=== PATIENT | male | born 1955 | race Caucasian/White ===

== ENCOUNTER 2020-07-07 16:25 | Inpatient (IN) | payer MEDICARE ==
[~2020-07-07] VITALS: Ht 172.7 cm; Wt 77.1 kg
[2020-07-07 18:01] LABS: BASOPHILS % 0.3 % (0.0-1.0); EOSINOPHILS % 0.1 % (0.0-6.0); HEMATOCRIT 49.2 % (38.2-49.6); HEMOGLOBIN 16.7 g/dL (14.0-18.0); LYMPHOCYTES # (AUTO) 1.1 (1.0-3.2); MEAN CORPUSCULAR HEMOGLOBIN 29.1 pg (28-32); MEAN CORPUSCULAR HGB CONC 33.9 g/dL (31-35); MEAN CORPUSCULAR VOLUME 85.9 fL (81-99); MONOCYTES % 6.4 % (4.4-11.3); NEUTROPHILS % 85.9 % (38.7-80.0); PLATELET COUNT 214 x10e3/uL (140-360); RED BLOOD COUNT 5.73 x10e6/uL (4.3-5.7); RED CELL DISTRIBUTION WIDTH 12.3 % (11.7-14.4)
[2020-07-07 18:14] LABS: ALANINE AMINOTRANSFERASE 31 IU/L (0-55); ALBUMIN 4.4 g/dL (3.5-5.0); ALBUMIN/GLOBULIN RATIO 1.3 (0.8-2.0); ALKALINE PHOSPHATASE 56 IU/L (40-150); ANION GAP 14.2 mmol/L (8-16); BLOOD UREA NITROGEN 17 mg/dL (7-26); BUN/CREATININE RATIO 16 (6-25); CALCIUM 10.4 mg/dL (8.4-10.2); CARBON DIOXIDE 24 mmol/L (22-29); CHLORIDE 106 mmol/L (98-107); CREATINE KINASE 124 IU/L (30-200); CREATININE, SERUM 1.08 mg/dL (0.72-1.25); EST GLOMERULAR FILTRATION RATE > 60 ML/MIN (60-); GLUCOSE 102 mg/dL (74-118); POTASSIUM 4.2 mmol/L (3.5-5.1); SODIUM 140 mmol/L (136-145)
[2020-07-07 19:27] LABS: INR 0.81; PROTHROMBIN TIME 11.6 seconds (11.9-14.5)
[2020-07-07 19:28] LABS: PARTIAL THROMBOPLASTIN TIME 26.3 seconds (23.8-35.5)
[2020-07-07] MEDS ORDERED: ONDANSETRON HCL INJ 2MG/ML 2ML 2 MG/ML VIAL IV PRN (20:00)
[2020-07-07] MEDS ORDERED: MORPHINE SULFATE INJ 4 MG/ML INJ 1ML IV PRN (20:00)
[2020-07-07] MEDS ORDERED: IOPAMIDOL 370 MG/ML 200 ML INFUS..BTL INJ ONE (20:11)
[2020-07-07] MEDS ORDERED: SODIUM CHLORIDE 0.9% 50ML 50 ML ONE ×2 (20:11→20:14)
[2020-07-07] MEDS ORDERED: LIDOCAINE HCL 1% LOCAL INJ 20 ML VIAL ONE (21:24)
[2020-07-07] MEDS: SODIUM CHLORIDE 0.9% 1000ML 1,000 ML IV SCH (21:45)
[2020-07-07 22:00] VITALS: BP 161/91
[2020-07-07] MEDS ORDERED: LIOTHYRONINE SO5 MCG PO (23:09)
[2020-07-07] MEDS ORDERED: PRAVASTATIN SOD40 MG (23:09)
[2020-07-07] MEDS ORDERED: LEVOTHYROXINE50 MCG PO (23:09)
[2020-07-07] MEDS ORDERED: GUAIFENESIN400 MG (23:09)
[2020-07-07] MEDS ORDERED: MOBIC15 MG PO (23:09)
[2020-07-07] MEDS ORDERED: ALBUTEROL0.63 MG/3 (23:09)
[2020-07-07] MEDS ORDERED: COMBIVENT RESPIM4 GM IH (23:09)
[2020-07-07] MEDS ORDERED: FLOMAX0.4 MG PO (23:09)
[2020-07-07] MEDS ORDERED: NORCO 10-325 T1 EACH PO (23:22)
[2020-07-08] VITALS (7 sets, daily range): BP systolic 114–147; BP diastolic 78–99
[2020-07-08] MEDS: MELATONIN 5 MG TABLET PO SCH (00:07)
[2020-07-08 06:29] LABS: BASOPHILS # (AUTO) 0.1 (0.0-0.1); BASOPHILS % 0.5 % (0.0-1.0); EOSINOPHILS # (AUTO) 0.1 (0.0-0.4); HEMATOCRIT 45.5 % (38.2-49.6); HEMOGLOBIN 15.1 g/dL (14.0-18.0); LYMPHOCYTES % 21.1 % (18.0-39.1); MEAN CORPUSCULAR HEMOGLOBIN 29.2 pg (28-32); MEAN CORPUSCULAR HGB CONC 33.2 g/dL (31-35); MEAN CORPUSCULAR VOLUME 87.8 fL (81-99); MONOCYTES # (AUTO) 1.2 (0.2-0.8); MONOCYTES % 12.4 % (4.4-11.3); NEUTROPHILS # (AUTO) 6.2 (2.1-6.9); NEUTROPHILS % 64.7 % (38.7-80.0); PLATELET COUNT 196 x10e3/uL (140-360); RED BLOOD COUNT 5.18 x10e6/uL (4.3-5.7); RED CELL DISTRIBUTION WIDTH 12.3 % (11.7-14.4)
[2020-07-08] MEDS: HYDROCODONE/APAP 10MG-325MG TAB PO PRN ×2 (06:41→21:02)
[2020-07-08 06:58] LABS: CREATINE KINASE MB 3.6 ng/mL (0-5.0)
[2020-07-08] MEDS ORDERED: ACETAMINOPHEN 325 MG TAB PO PRN (07:15)
[2020-07-08] MEDS ORDERED: ZOLPIDEM TARTRATE 5 MG TAB PO PRN (07:15)
[2020-07-08] MEDS ORDERED: ONDANSETRON HCL INJ 2MG/ML 2ML 2 MG/ML VIAL IV PRN (07:15)
[2020-07-08] MEDS ORDERED: LIOTHYRONINE SODIUM 5 MCG TAB PO SCH (07:30)
[2020-07-08 07:35] LABS: ALANINE AMINOTRANSFERASE 25 IU/L (0-55); ALBUMIN 3.8 g/dL (3.5-5.0); ALBUMIN/GLOBULIN RATIO 1.4 (0.8-2.0); ALKALINE PHOSPHATASE 53 IU/L (40-150); BLOOD UREA NITROGEN 18 mg/dL (7-26); BUN/CREATININE RATIO 18 (6-25); CALCIUM 8.9 mg/dL (8.4-10.2); CARBON DIOXIDE 22 mmol/L (22-29); CHLORIDE 107 mmol/L (98-107); EST GLOMERULAR FILTRATION RATE > 60 ML/MIN (60-); GLUCOSE 83 mg/dL (74-118); SODIUM 140 mmol/L (136-145)
[2020-07-08] MEDS: SODIUM CHLORIDE 0.9% 1000ML 1,000 ML IV SCH ×2 (09:05→17:53)
[2020-07-08] MEDS: LEVOTHYROXINE SODIUM 25 MCG TABLET PO SCH (09:45)
[2020-07-08] MEDS: TAMSULOSIN HCL 0.4 MG CAP PO SCH ×2 (09:46→17:52)
[2020-07-08] MEDS ORDERED: LIOTHYRONINE SODIUM 5 MCG TAB PO ONE (10:00)
[2020-07-08 11:25] LABS: CREATINE KINASE MB 3.4 ng/mL (0-5.0)
[2020-07-08 14:36] LABS: CREATINE KINASE MB 3.4 ng/mL (0-5.0)
[2020-07-08] MEDS: PRAVASTATIN 20 MG TAB PO SCH (21:02)
[2020-07-09] VITALS: BP 129/86
[2020-07-09] MEDS: LEVOTHYROXINE SODIUM 25 MCG TABLET PO SCH (06:10)
[2020-07-09] MEDS: LIOTHYRONINE SODIUM 5 MCG TAB PO SCH (06:10)
[2020-07-09 08:54] VITALS: BP 115/76
[2020-07-09 09:09] LABS: BASOPHILS # (AUTO) 0.1 (0.0-0.1); BASOPHILS % 0.7 % (0.0-1.0); EOSINOPHILS # (AUTO) 0.3 (0.0-0.4); EOSINOPHILS % 3.3 % (0.0-6.0); HEMATOCRIT 48.3 % (38.2-49.6); HEMOGLOBIN 15.9 g/dL (14.0-18.0); LYMPHOCYTES # (AUTO) 1.7 (1.0-3.2); LYMPHOCYTES % 20.7 % (18.0-39.1); MEAN CORPUSCULAR HEMOGLOBIN 29.1 pg (28-32); MEAN CORPUSCULAR HGB CONC 32.9 g/dL (31-35); MEAN CORPUSCULAR VOLUME 88.3 fL (81-99); MONOCYTES # (AUTO) 0.8 (0.2-0.8); MONOCYTES % 9.7 % (4.4-11.3); NEUTROPHILS # (AUTO) 5.2 (2.1-6.9); NEUTROPHILS % 65.1 % (38.7-80.0); PLATELET COUNT 188 x10e3/uL (140-360); RED BLOOD COUNT 5.47 x10e6/uL (4.3-5.7); RED CELL DISTRIBUTION WIDTH 12.2 % (11.7-14.4)
[2020-07-09] MEDS: TAMSULOSIN HCL 0.4 MG CAP PO SCH ×2 (09:21→21:04)
[2020-07-09 09:32] LABS: ANION GAP 13.1 mmol/L (8-16); BLOOD UREA NITROGEN 14 mg/dL (7-26); BUN/CREATININE RATIO 14 (6-25); CALCIUM 9.6 mg/dL (8.4-10.2); CARBON DIOXIDE 26 mmol/L (22-29); CHLORIDE 106 mmol/L (98-107); CREATININE, SERUM 1.01 mg/dL (0.72-1.25); EST GLOMERULAR FILTRATION RATE > 60 ML/MIN (60-); GLUCOSE 105 mg/dL (74-118); POTASSIUM 4.1 mmol/L (3.5-5.1); SODIUM 141 mmol/L (136-145)
[2020-07-09 12:20] VITALS: BP 138/68
[2020-07-09] MEDS: SODIUM CHLORIDE 0.9% 1000ML 1,000 ML IV SCH ×2 (15:30→21:04)
[2020-07-09 16:36] VITALS: BP 129/74
[2020-07-09 20:00] VITALS: BP 131/84
[2020-07-09 21:04] VITALS: BP 131/84
[2020-07-09] MEDS: PRAVASTATIN 20 MG TAB PO SCH (21:04)
[2020-07-09] MEDS: MELATONIN 5 MG TABLET PO SCH (21:04)
[2020-07-10] VITALS (7 sets, daily range): BP systolic 111–139; BP diastolic 71–85
[2020-07-10] MEDS: LIOTHYRONINE SODIUM 5 MCG TAB PO SCH (05:24)
[2020-07-10] MEDS: TAMSULOSIN HCL 0.4 MG CAP PO SCH ×2 (05:24→21:22)
[2020-07-10] MEDS: LEVOTHYROXINE SODIUM 25 MCG TABLET PO SCH (05:24)
[2020-07-10] MEDS: MELATONIN 5 MG TABLET PO SCH (21:22)
[2020-07-10] MEDS: SODIUM CHLORIDE 0.9% 1000ML 1,000 ML IV SCH (21:22)
[2020-07-10] MEDS: PRAVASTATIN 20 MG TAB PO SCH (21:22)
[2020-07-11] VITALS (7 sets, daily range): BP systolic 128–162; BP diastolic 79–92
[2020-07-11] MEDS: LEVOTHYROXINE SODIUM 25 MCG TABLET PO SCH (05:45)
[2020-07-11] MEDS: TAMSULOSIN HCL 0.4 MG CAP PO SCH ×2 (05:45→21:01)
[2020-07-11] MEDS: LIOTHYRONINE SODIUM 5 MCG TAB PO SCH (05:46)
[2020-07-11] MEDS: IPRATROPIUM/ALBUTEROL SULFATE 4 GM INH INH SCH ×2 (08:00→14:00)
[2020-07-11] MEDS: SODIUM CHLORIDE 0.9% 1000ML 1,000 ML IV SCH (21:01)
[2020-07-11] MEDS: MELATONIN 5 MG TABLET PO SCH (21:01)
[2020-07-11] MEDS: PRAVASTATIN 20 MG TAB PO SCH (21:01)
[2020-07-11] MEDS: HYDROCODONE/APAP 10MG-325MG TAB PO PRN (21:03)
[2020-07-12] VITALS (7 sets, daily range): BP systolic 131–152; BP diastolic 81–89
[2020-07-12] MEDS: SODIUM CHLORIDE 0.9% 1000ML 1,000 ML IV SCH ×2 (04:37→23:02)
[2020-07-12] MEDS: LIOTHYRONINE SODIUM 5 MCG TAB PO SCH (05:37)
[2020-07-12] MEDS: LEVOTHYROXINE SODIUM 25 MCG TABLET PO SCH (05:37)
[2020-07-12] MEDS: TAMSULOSIN HCL 0.4 MG CAP PO SCH ×2 (05:37→21:19)
[2020-07-12 05:45] LABS: BASOPHILS # (AUTO) 0.1 (0.0-0.1); BASOPHILS % 0.6 % (0.0-1.0); EOSINOPHILS # (AUTO) 0.4 (0.0-0.4); EOSINOPHILS % 5.3 % (0.0-6.0); HEMATOCRIT 43.9 % (38.2-49.6); HEMOGLOBIN 14.8 g/dL (14.0-18.0); LYMPHOCYTES % 25.3 % (18.0-39.1); MEAN CORPUSCULAR HEMOGLOBIN 29.3 pg (28-32); MEAN CORPUSCULAR HGB CONC 33.7 g/dL (31-35); MEAN CORPUSCULAR VOLUME 86.9 fL (81-99); MONOCYTES # (AUTO) 0.9 (0.2-0.8); MONOCYTES % 11.1 % (4.4-11.3); NEUTROPHILS # (AUTO) 4.5 (2.1-6.9); NEUTROPHILS % 57.3 % (38.7-80.0); PLATELET COUNT 195 x10e3/uL (140-360); RED BLOOD COUNT 5.05 x10e6/uL (4.3-5.7); RED CELL DISTRIBUTION WIDTH 12.1 % (11.7-14.4)
[2020-07-12 06:05] LABS: ANION GAP 11.8 mmol/L (8-16); BLOOD UREA NITROGEN 11 mg/dL (7-26); BUN/CREATININE RATIO 12 (6-25); CALCIUM 8.7 mg/dL (8.4-10.2); CARBON DIOXIDE 24 mmol/L (22-29); CHLORIDE 110 mmol/L (98-107); EST GLOMERULAR FILTRATION RATE > 60 ML/MIN (60-); GLUCOSE 84 mg/dL (74-118); POTASSIUM 3.8 mmol/L (3.5-5.1); SODIUM 142 mmol/L (136-145)
[2020-07-12] MEDS: HYDROCODONE/APAP 10MG-325MG TAB PO PRN (19:21)
[2020-07-12] MEDS: PRAVASTATIN 20 MG TAB PO SCH (21:19)
[2020-07-12] MEDS: MELATONIN 5 MG TABLET PO SCH (21:19)
[2020-07-13] VITALS (8 sets, daily range): BP systolic 105–145; BP diastolic 60–87
[2020-07-13 05:30] LABS: BASOPHILS # (AUTO) 0.1 (0.0-0.1); BASOPHILS % 0.6 % (0.0-1.0); EOSINOPHILS # (AUTO) 0.4 (0.0-0.4); EOSINOPHILS % 4.7 % (0.0-6.0); HEMATOCRIT 44.9 % (38.2-49.6); HEMOGLOBIN 15.1 g/dL (14.0-18.0); LYMPHOCYTES # (AUTO) 1.7 (1.0-3.2); LYMPHOCYTES % 18.5 % (18.0-39.1); MEAN CORPUSCULAR HEMOGLOBIN 29.2 pg (28-32); MEAN CORPUSCULAR HGB CONC 33.6 g/dL (31-35); MEAN CORPUSCULAR VOLUME 86.7 fL (81-99); MONOCYTES # (AUTO) 0.9 (0.2-0.8); MONOCYTES % 9.8 % (4.4-11.3); NEUTROPHILS # (AUTO) 6.2 (2.1-6.9); NEUTROPHILS % 66.1 % (38.7-80.0); PLATELET COUNT 197 x10e3/uL (140-360); RED BLOOD COUNT 5.18 x10e6/uL (4.3-5.7)
[2020-07-13 05:44] LABS: ANION GAP 12.8 mmol/L (8-16); BLOOD UREA NITROGEN 11 mg/dL (7-26); BUN/CREATININE RATIO 12 (6-25); CALCIUM 9.3 mg/dL (8.4-10.2); CARBON DIOXIDE 25 mmol/L (22-29); CHLORIDE 108 mmol/L (98-107); CREATININE, SERUM 0.92 mg/dL (0.72-1.25); EST GLOMERULAR FILTRATION RATE > 60 ML/MIN (60-); GLUCOSE 83 mg/dL (74-118); POTASSIUM 3.8 mmol/L (3.5-5.1); SODIUM 142 mmol/L (136-145)
[2020-07-13] MEDS: LIOTHYRONINE SODIUM 5 MCG TAB PO SCH (06:38)
[2020-07-13] MEDS: LEVOTHYROXINE SODIUM 25 MCG TABLET PO SCH (06:38)
[2020-07-13] MEDS: TAMSULOSIN HCL 0.4 MG CAP PO SCH ×2 (06:38→20:15)
[2020-07-13] MEDS: SODIUM CHLORIDE 0.9% 1000ML 1,000 ML IV SCH (16:20)
[2020-07-13] MEDS: HYDROCODONE/APAP 10MG-325MG TAB PO PRN (19:45)
[2020-07-13] MEDS: PRAVASTATIN 20 MG TAB PO SCH (20:15)
[2020-07-13] MEDS: MELATONIN 5 MG TABLET PO SCH (20:15)
[2020-07-14] VITALS (8 sets, daily range): BP systolic 129–142; BP diastolic 81–95
[2020-07-14] MEDS: LIOTHYRONINE SODIUM 5 MCG TAB PO SCH (06:17)
[2020-07-14] MEDS: LEVOTHYROXINE SODIUM 25 MCG TABLET PO SCH (06:17)
[2020-07-14] MEDS: TAMSULOSIN HCL 0.4 MG CAP PO SCH ×2 (06:17→20:59)
[2020-07-14] MEDS: SODIUM CHLORIDE 0.9% 1000ML 1,000 ML IV SCH (08:15)
[2020-07-14] MEDS ORDERED: ONDANSETRON HCL 4 MG ORAL DISINTEGRATING TAB PO PRN (09:15)
[2020-07-14] MEDS: HYDROCODONE/APAP 10MG-325MG TAB PO PRN (19:28)
[2020-07-14] MEDS: PRAVASTATIN 20 MG TAB PO SCH (20:59)
[2020-07-14] MEDS: MELATONIN 5 MG TABLET PO SCH (20:59)
[2020-07-15] VITALS (9 sets, daily range): BP systolic 113–153; BP diastolic 70–89
[2020-07-15] MEDS: SODIUM CHLORIDE 0.9% 1000ML 1,000 ML IV SCH ×2 (03:36→18:39)
[2020-07-15] MEDS: LIOTHYRONINE SODIUM 5 MCG TAB PO SCH (05:41)
[2020-07-15] MEDS: TAMSULOSIN HCL 0.4 MG CAP PO SCH ×2 (05:41→21:26)
[2020-07-15] MEDS: LEVOTHYROXINE SODIUM 25 MCG TABLET PO SCH (05:41)
[2020-07-15] MEDS: HYDROCODONE/APAP 10MG-325MG TAB PO PRN (18:25)
[2020-07-15] MEDS: PRAVASTATIN 20 MG TAB PO SCH (21:26)
[2020-07-15] MEDS: MELATONIN 5 MG TABLET PO SCH (21:26)
[2020-07-16 04:54] VITALS: BP 138/84
[2020-07-16] MEDS: TAMSULOSIN HCL 0.4 MG CAP PO SCH ×2 (06:40→20:52)
[2020-07-16] MEDS: LIOTHYRONINE SODIUM 5 MCG TAB PO SCH (06:40)
[2020-07-16] MEDS: LEVOTHYROXINE SODIUM 25 MCG TABLET PO SCH (06:40)
[2020-07-16 08:13] VITALS: BP 139/84
[2020-07-16 08:29] LABS: BASOPHILS % 0.5 % (0.0-1.0); EOSINOPHILS # (AUTO) 0.3 (0.0-0.4); EOSINOPHILS % 4.2 % (0.0-6.0); HEMATOCRIT 44.4 % (38.2-49.6); HEMOGLOBIN 15.1 g/dL (14.0-18.0); LYMPHOCYTES # (AUTO) 0.8 (1.0-3.2); LYMPHOCYTES % 9.3 % (18.0-39.1); MEAN CORPUSCULAR HEMOGLOBIN 29.2 pg (28-32); MEAN CORPUSCULAR VOLUME 85.7 fL (81-99); MONOCYTES # (AUTO) 0.9 (0.2-0.8); MONOCYTES % 10.8 % (4.4-11.3); NEUTROPHILS # (AUTO) 6.1 (2.1-6.9); PLATELET COUNT 194 x10e3/uL (140-360); RED BLOOD COUNT 5.18 x10e6/uL (4.3-5.7); RED CELL DISTRIBUTION WIDTH 12.2 % (11.7-14.4)
[2020-07-16 08:35] VITALS: BP 122/80
[2020-07-16 08:51] LABS: ANION GAP 11.9 mmol/L (8-16); BLOOD UREA NITROGEN 12 mg/dL (7-26); BUN/CREATININE RATIO 13 (6-25); CALCIUM 9.1 mg/dL (8.4-10.2); CARBON DIOXIDE 26 mmol/L (22-29); CHLORIDE 105 mmol/L (98-107); CREATININE, SERUM 0.93 mg/dL (0.72-1.25); EST GLOMERULAR FILTRATION RATE > 60 ML/MIN (60-); GLUCOSE 139 mg/dL (74-118); POTASSIUM 3.9 mmol/L (3.5-5.1); SODIUM 139 mmol/L (136-145)
[2020-07-16] MEDS: SODIUM CHLORIDE 0.9% 1000ML 1,000 ML IV SCH (08:51)
[2020-07-16] MEDS: HYDROCODONE/APAP 10MG-325MG TAB PO PRN ×2 (08:51→20:52)
[2020-07-16 11:25] VITALS: BP 136/82
[2020-07-16 15:31] VITALS: BP 146/92
[2020-07-16 20:00] VITALS: BP 144/91
[2020-07-16] MEDS: MELATONIN 5 MG TABLET PO SCH (20:52)
[2020-07-16] MEDS: PRAVASTATIN 20 MG TAB PO SCH (20:52)
[2020-07-17] VITALS (8 sets, daily range): BP systolic 118–146; BP diastolic 75–91
[2020-07-17] MEDS: LIOTHYRONINE SODIUM 5 MCG TAB PO SCH (05:31)
[2020-07-17] MEDS: LEVOTHYROXINE SODIUM 25 MCG TABLET PO SCH (05:31)
[2020-07-17] MEDS: TAMSULOSIN HCL 0.4 MG CAP PO SCH ×2 (05:31→21:04)
[2020-07-17] MEDS: SODIUM CHLORIDE 0.9% 1000ML 1,000 ML IV SCH ×2 (05:32→13:17)
[2020-07-17] MEDS: HYDROCODONE/APAP 10MG-325MG TAB PO PRN ×2 (09:04→18:41)
[2020-07-17] MEDS: MELATONIN 5 MG TABLET PO SCH (21:04)
[2020-07-17] MEDS: PRAVASTATIN 20 MG TAB PO SCH (21:04)
[2020-07-18] VITALS (7 sets, daily range): BP systolic 127–140; BP diastolic 77–86
[2020-07-18] MEDS: SODIUM CHLORIDE 0.9% 1000ML 1,000 ML IV SCH (06:16)
[2020-07-18] MEDS: LEVOTHYROXINE SODIUM 25 MCG TABLET PO SCH (06:16)
[2020-07-18] MEDS: TAMSULOSIN HCL 0.4 MG CAP PO SCH ×2 (06:16→21:00)
[2020-07-18] MEDS: HYDROCODONE/APAP 10MG-325MG TAB PO PRN ×2 (08:54→18:59)
[2020-07-18] MEDS: PRAVASTATIN 20 MG TAB PO SCH (21:00)
[2020-07-18] MEDS: MELATONIN 5 MG TABLET PO SCH (21:00)
[2020-07-19] VITALS (8 sets, daily range): BP systolic 124–140; BP diastolic 71–92
[2020-07-19] MEDS: SODIUM CHLORIDE 0.9% 1000ML 1,000 ML IV SCH ×2 (02:15→19:09)
[2020-07-19] MEDS: LEVOTHYROXINE SODIUM 25 MCG TABLET PO SCH (06:05)
[2020-07-19] MEDS: TAMSULOSIN HCL 0.4 MG CAP PO SCH ×2 (06:05→21:33)
[2020-07-19] MEDS: LIOTHYRONINE SODIUM 5 MCG TAB PO SCH (06:05)
[2020-07-19] MEDS: HYDROCODONE/APAP 10MG-325MG TAB PO PRN (19:09)
[2020-07-19] MEDS: MELATONIN 5 MG TABLET PO SCH (21:33)
[2020-07-19] MEDS: PRAVASTATIN 20 MG TAB PO SCH (21:33)
[2020-07-20] VITALS (9 sets, daily range): BP systolic 112–138; BP diastolic 71–87
[2020-07-20 05:19] LABS: BASOPHILS # (AUTO) 0.1 (0.0-0.1); EOSINOPHILS # (AUTO) 0.5 (0.0-0.4); EOSINOPHILS % 6.3 % (0.0-6.0); HEMATOCRIT 43.8 % (38.2-49.6); HEMOGLOBIN 14.5 g/dL (14.0-18.0); LYMPHOCYTES # (AUTO) 1.8 (1.0-3.2); LYMPHOCYTES % 23.4 % (18.0-39.1); MEAN CORPUSCULAR HEMOGLOBIN 28.8 pg (28-32); MEAN CORPUSCULAR HGB CONC 33.1 g/dL (31-35); MEAN CORPUSCULAR VOLUME 87.1 fL (81-99); MONOCYTES # (AUTO) 0.9 (0.2-0.8); MONOCYTES % 12.1 % (4.4-11.3); NEUTROPHILS # (AUTO) 4.4 (2.1-6.9); NEUTROPHILS % 56.8 % (38.7-80.0); PLATELET COUNT 221 x10e3/uL (140-360); RED BLOOD COUNT 5.03 x10e6/uL (4.3-5.7); RED CELL DISTRIBUTION WIDTH 12.2 % (11.7-14.4)
[2020-07-20] MEDS: TAMSULOSIN HCL 0.4 MG CAP PO SCH ×2 (05:45→20:32)
[2020-07-20] MEDS: LEVOTHYROXINE SODIUM 25 MCG TABLET PO SCH (05:45)
[2020-07-20] MEDS: LIOTHYRONINE SODIUM 5 MCG TAB PO SCH (05:45)
[2020-07-20 05:53] LABS: ANION GAP 12.1 mmol/L (8-16); BLOOD UREA NITROGEN 13 mg/dL (7-26); BUN/CREATININE RATIO 14 (6-25); CALCIUM 9.2 mg/dL (8.4-10.2); CARBON DIOXIDE 24 mmol/L (22-29); CHLORIDE 108 mmol/L (98-107); CREATININE, SERUM 0.92 mg/dL (0.72-1.25); EST GLOMERULAR FILTRATION RATE > 60 ML/MIN (60-); GLUCOSE 76 mg/dL (74-118); MAGNESIUM 1.9 MG/DL (1.3-2.1); PHOSPHORUS 2.9 MG/DL (2.3-4.7); POTASSIUM 4.1 mmol/L (3.5-5.1); SODIUM 140 mmol/L (136-145)
[2020-07-20] MEDS: SODIUM CHLORIDE 0.9% 1000ML 1,000 ML IV SCH (11:29)
[2020-07-20] MEDS: HYDROCODONE/APAP 10MG-325MG TAB PO PRN (19:11)
[2020-07-20] MEDS: MELATONIN 5 MG TABLET PO SCH (20:32)
[2020-07-20] MEDS: PRAVASTATIN 20 MG TAB PO SCH (20:32)
[2020-07-21] VITALS (8 sets, daily range): BP systolic 119–162; BP diastolic 79–93
[2020-07-21] MEDS: SODIUM CHLORIDE 0.9% 1000ML 1,000 ML IV SCH ×2 (05:30→20:20)
[2020-07-21] MEDS: LEVOTHYROXINE SODIUM 25 MCG TABLET PO SCH (05:36)
[2020-07-21] MEDS: LIOTHYRONINE SODIUM 5 MCG TAB PO SCH (05:36)
[2020-07-21] MEDS: TAMSULOSIN HCL 0.4 MG CAP PO SCH ×2 (05:36→20:35)
[2020-07-21] MEDS: HYDROCODONE/APAP 10MG-325MG TAB PO PRN ×2 (06:02→19:31)
[2020-07-21 09:17] LABS: ABG HCO3 23 mmol/L (22-26); ABG PCO2 37 mmHg (35-45); ABG PO2 82 mmHg (80-105); ABG TCO2 24
[2020-07-21] MEDS ORDERED: ALBUTEROL SULF 0.083% NEB SOLN 3 ML NEB NEB ONE (11:30)
[2020-07-21] MEDS ORDERED: ALBUTEROL SULF 0.083% NEB SOLN 3 ML NEB ONE (16:48)
[2020-07-21] MEDS: PRAVASTATIN 20 MG TAB PO SCH (20:35)
[2020-07-21] MEDS: MELATONIN 5 MG TABLET PO SCH (20:46)
== END 2020-07-22 00:09 | disposition short-term general hospital (02) | DRG 201 ==
LOC: ER 17:47 → ERHOLD 19:56 → MED/SURG2 22:06
PROVIDERS: ADMIT Internal Medicine; ATTEND Internal Medicine
PROC: 0W9B30Z Drainage of Left Pleural Cavity with Drainage Device, Percutaneous Approach (ICD-10-PCS; principal; 2020-07-07)
DX: J93.11 Primary spontaneous pneumothorax (principal); J93.82 Other air leak; E03.9 Hypothyroidism, unspecified; N40.0 Benign prostatic hyperplasia without lower urinary tract symptoms; Z87.891 Personal history of nicotine dependence; Z20.822 Contact with and (suspected) exposure to COVID-19; E78.5 Hyperlipidemia, unspecified; L13.9 Bullous disorder, unspecified; J43.8 Other emphysema
CPT/HCPCS: 32551; 36415; 36600; 71045; 71046; 71250; 71260; 74470; 80048; 80053; 82103; 82550; 82553; 82805; 83735; 84100; 84484; 85025; 85379; 85610; 85730; 93005; 94060; 96361; 99251; 99284; J2001; J2270; J2405; J7030; Q9967; U0002